=== PATIENT | female | born 1955 | race African-American/Black ===

== ENCOUNTER 2023-12-05 08:37 | Emergency (ER) | payer MEDICAID, MEDICARE ==
[~2023-12-05] VITALS: Ht 170.2 cm; Wt 73.0 kg
[2023-12-05 08:39] VITALS: TEMP 98.6; O2SAT 98
[2023-12-05 09:29] VITALS: BP 170/87; PULSE 90; RESP 16
[2023-12-05] MEDS: KETOROLAC 30MG/ML VIAL IM ONE (09:29)
[2023-12-05] MEDS: LACTULOSE 20G/30ML UDC PO ONE (09:30)
[2023-12-05] MEDS: MAGNESIUM HYDROXIDE 400MG/5ML 30ML UDC PO ONE (09:30)
[2023-12-05] MEDS ORDERED: IBUP-2029 MT (10:23)
[2023-12-05] MEDS ORDERED: DOCU-138 MT (10:23)
== END 2023-12-05 10:28 | disposition home or self-care (01) ==
LOC: ER 08:52
DX: K59.00 Constipation, unspecified (principal); E11.9 Type 2 diabetes mellitus without complications; J45.909 Unspecified asthma, uncomplicated; Z88.0 Allergy status to penicillin; Z86.59 Personal history of other mental and behavioral disorders
CPT/HCPCS: 99283; 74018; 96372; J1885